=== PATIENT | female | born 1990 | race Caucasian/White ===

== ENCOUNTER 2017-10-11 19:08 | Emergency (ER) | payer SELFPAY ==
--- NOTE | 2017-10-11 19:27 | EDM.PDOC ---
ED HPI GENERAL MEDICAL PROBLEM - General Chief Complaint: Lower Extremity Injury/Pain Stated Complaint: FELL THIS MORNING KNEE AND TAIL BONE Time Seen by Provider: 10/11/17 19:16 - History of Present Illness INITIAL COMMENTS - FREE TEXT/NARRATIVE: 27-year-old female presents emergency room with tailbone and left knee pain. This occurred later this morning. Patient has difficulty walking on it and her back is still sore she's not use Tylenol or Motrin as they generally do not work. Patient has any on the left that is swelling up she can ambulate on it but it is somewhat difficult. She has pain in the very lowest aspect of her back. She's not had any loss of bowel or bladder control no numbness or tingling down her legs. No other complaints at this time. 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) Other OB/BYN History: half of rt ovary removed - Past Surgical History HEENT Surgical History: Reports: Adenoidectomy, Tonsillectomy Female Surgical History: Reports: Oophorectomy Social & Family History - Tobacco Use Smoking Status *Q: Current Every Day Smoker Years of Tobacco use: 4 Packs/Tins Daily: 0.4 - Alcohol Use Days Per Week of Alcohol Use: 2 Number of Drinks Per Day: 6 Total Drinks Per Week: 12 - Recreational Drug Use Recreational Drug Use: No Recreational Drug Type: Reports: Marijuana/Hashish Recreational Drug Use Frequency: Daily Review of Systems - Review of Systems Review Of Systems: See Below Constitutional: Reports: No Symptoms Respiratory: Reports: No Symptoms Cardiovascular: Reports: No Symptoms GI/Abdominal: Reports: No Symptoms Neurological: Reports: No Symptoms ED EXAM, GENERAL - Physical Exam Exam: See Below Exam Limited By: No Limitations General Appearance: Alert, No Apparent Distress Head: Atraumatic, Normocephalic Neck: Normal Inspection Respiratory/Chest: No Respiratory Distress, Lungs Clear, Normal Breath Sounds Cardiovascular: Regular Rate, Rhythm, No Edema, No Murmur GI/Abdominal: Normal Bowel Sounds, Soft, Non-Tender Back Exam: Normal Inspection, Other (Significant discomfort over the area of the sacrum palpation over the area coccyx is fairly nontender). No: CVA Tenderness (L), CVA Tenderness (R) Extremities: Normal Range of Motion, Non-Tender, No Pedal Edema Neurological: Oriented Psychiatric: Normal Affect, Normal Mood Skin Exam: Warm, Dry, Intact Course - Vital Signs Last Recorded V/S: Last Vital Signs Temp 36.3 C 10/11/17 19:27 Pulse 68 10/11/17 19:27 Resp 20 10/11/17 19:27 BP 116/78 10/11/17 19:27 Pulse Ox 99 10/11/17 19:27 - Orders/Labs/Meds Orders: Active Orders 24 hr Category Date Time Status Knee 3V Lt [CR] Stat Exams 10/11/17 19:28 Taken Sacrum Coccyx Min 2V [CR] Stat Exams 10/11/17 19:28 Taken Labs: Laboratory Tests 10/11/17 Range/Units 19:40 Urine HCG, Qual Negative (NEGATIVE) - Re-Assessments/Exams Free Text/Narrative Re-Assessment/Exam: 10/11/17 21:13 X-ray of her sacrum appears to be normal. X-ray of her knee shows no acute fracture dislocation she's had some degenerative changes noted around the lateral aspect of the patella and some nonacute bony fragments at the lateral into the patella. The patient has a knee immobilizer at home this is very uncomfortable for the tries to put a patella in a position that is not comfortable for her in the aluminum braces digging into her leg I'm not sure she 's been of benefit from a knee immobilizer at this point she can use her crutches if needed. Departure - Departure Time of Disposition: 21:14 Disposition: Home, Self-Care 01 Clinical Impression: Contusion of tibia, Prepatellar bursitis - Discharge Information Prescriptions: Naproxen [Naprosyn] 500 mg PO Q12HR #20 tablet Referrals: PCP,None [Primary Care Provider] - Forms: ED Department Discharge Additional Instructions: Return to the emergency room with any questions problems worsening symptoms. Use your crutches only if needed. Use caution at work don't overdo it. He been started on Naprosyn this is a Motrin-like medication use it twice daily with meals it will help with the inflammation and discomfort. You may use Tylenol at the recommended dose he's in addition to this do not take Motrin with this. Follow-up in the Hospital clinic on Thursday for recheck [phone] - My Orders Last 24 Hours: My Active Orders 10/11/17 19:28 Knee 3V Lt [CR] Stat Sacrum Coccyx Min 2V [CR] Stat - Assessment/Plan Last 24 Hours: My Active Orders 10/11/17 19:28 Knee 3V Lt [CR] Stat Sacrum Coccyx Min 2V [CR] Stat
[2017-10-11 19:29] VITALS: BP 116/78
[2017-10-11] MEDS ORDERED: Ketorolac 60 MG/2 ML SDV IM ONE (21:29)
--- NOTE | 2017-10-12 08:06 | CR ---
Left knee: AP, lateral and sunrise patellar views of the left knee were obtained. Comparison: No prior knee exam. Medial and lateral joint spaces are maintained in height. Joint effusion is seen. Bone density is noted off the medial patella which is well-corticated and likely due to old injury. Small bone exostosis is noted off the posterior distal femur which is felt to be benign and incidental. No acute bony abnormality is identified. Impression: 1. Joint effusion. 2. Incidental bony findings as noted above. No acute bony abnormality is appreciated. Diagnostic code #3
--- NOTE | 2017-10-12 08:06 | CR ---
Sacrum and coccyx: Three views of the sacrum and coccyx were obtained. Comparison: No previous study. Joint spaces within the sacroiliac joints appear maintained. Sacral foramina are patent. No fracture or other abnormality is seen. Impression: 1. No abnormality is identified on three-view sacrum and coccyx study. Diagnostic code #1
== END 2017-10-11 21:38 | disposition home or self-care (01) ==
LOC: JD.ED 19:08
DX: S80.12XA Contusion of left lower leg, initial encounter (principal); S80.02XA Contusion of left knee, initial encounter; F17.210 Nicotine dependence, cigarettes, uncomplicated; W19.XXXA Unspecified fall, initial encounter
CPT/HCPCS: 72220; 73562; 81025; 96372; 99283; J1885

== ENCOUNTER 2018-05-20 14:48 | Emergency (ER) | payer SELFPAY ==
[2018-05-20 15:03] VITALS: BP 119/82
--- NOTE | 2018-05-20 15:51 | CT ---
Head CT Technique: Multiple axial sections through the brain were obtained. Intravenous contrast was not utilized. Comparison: No prior intracranial imaging. Findings: Ventricles along with basal cisterns and sulci over the convexities are within normal limits for the patient's age. No abnormal parenchymal densities are seen. No evidence of intracranial hemorrhage. No midline shift or mass effect is seen. Bone window settings were reviewed which shows no acute calvarial abnormality. Visualized sinuses are clear. Impression: 1. Nothing acute is seen on noncontrast head CT study. Diagnostic code #1
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
== END 2018-05-20 16:37 | disposition home or self-care (01) ==
LOC: JD.ED 14:48
DX: S06.0X0A Concussion without loss of consciousness, initial encounter (principal); F17.210 Nicotine dependence, cigarettes, uncomplicated; V49.9XXA Car occupant (driver) (passenger) injured in unspecified traffic accident, initial encounter
CPT/HCPCS: 70450; 70450-26; 99284-25